=== PATIENT | female | born 1935 | race Caucasian/White ===

== ENCOUNTER 2018-02-16 12:28 | Emergency (ER) | payer MEDICARE ==
[2018-02-16] MEDS ORDERED: Tetan/Diph/Pertus SYR(Tdap)* 0.5 ML SYR(BOOSTRIX) use SYR IM ONE (12:40)
--- NOTE | 2018-02-16 12:46 | UC ---
Laceration HPI - HPI Summary HPI Summary: 82 yo female presents with laceration to left leg. She tells me that she opened the car door to get into the car and the bottom of the door hit her left robbins. Sustained a laceration. Bandaged it and came to urgent care. Unsure date of last tetanus. She is on blood thinners due to afib - History Of Current Complaint Chief Complaint: UCLaceration Stated Complaint: LEG LAC Time Seen by Provider: 02/16/18 12:45 Hx Obtained From: Patient Laceration Location: Calf Mechanism Of Injury: Blunt Trauma Onset/Duration: Sudden Onset Severity: Mild Pain Intensity: 2 Pain Scale Used: 0-10 Numeric - Allergies/Home Medications Allergies/Adverse Reactions: Allergies Allergy/AdvReac Type Severity Reaction Status Date / Time hydralazine Allergy See Comment Verified 02/16/18 12:52 Tetracyclines Allergy Diarrhea Verified 02/16/18 12:52 narcotics Allergy Vomiting Uncoded 02/16/18 12:52 Home Medications: Home Medications Anastrozole (NF) [Arimidex (NF)] 1 mg PO DAILY 02/16/18 [History Confirmed 02/16] Ascorbic Acid TAB* [Vitamin C TAB*] 1 tab PO DAILY 02/16/18 [History Confirmed 02/16/18] Atorvastatin* [Lipitor 20 MG*] 20 mg PO BEDTIME 02/16/18 [History Confirmed 08/24] Calcium Citrate/Vitamin D3 [Calcium Cit 200-Vit D3 250 Tab] 1 tab PO DAILY 02/16 [History Confirmed 02/16/18] Calcium Polycarbophil [Fiber] 1 tab PO BID 02/16/18 [History Confirmed 02/16/18] Cholecalciferol (Vitamin D3) [D3-2000] 2,000 units PO DAILY 02/16/18 [History Confirmed 02/16/18] Cyanocobalamin (Vitamin B-12) [Vitamin B-12] 1,000 mcg PO DAILY 02/16/18 [ History Confirmed 02/16/18] Denosumab(NF) [Prolia(NF)] 60 ml SUBCUT SEE INSTRUCTIONS 02/16/18 [History Confirmed 02/16/18] Doxycycline (NF) 20 mg PO DAILY 02/16/18 [History Confirmed 02/16/18] Furosemide TAB* [Lasix TAB*] 20 mg PO DAILY 02/16/18 [History Confirmed 02/16/18 ] Lansoprazole CAP (NF) [Prevacid CAP (NF)] 30 mg PO DAILY 02/16/18 [History Confirmed 02/16/18] Latanoprost 0.005%* [Xalatan 0.005%*] 1 drop LEFT EYE BEDTIME 02/16/18 [History Confirmed 02/16/18] Metoprolol Succinate XL TAB* [Toprol XL TAB*] 25 mg PO DAILY 02/16/18 [History Confirmed 02/16/18] Multivit-Min/Iron/Folic/Lutein [Centrum Silver Women Tablet] 1 tab PO DAILY 08/24 [History Confirmed 02/16/18] [place]-3 Fatty Acids/Fish Oil [[place] 3 1,000 mg Softgel] 1,000 mg PO BID [History Confirmed 02/16/18] [place]-3/Dha/Epa/Lut/Zeaxanthin [[facility] Softgel] 1 tab PO DAILY 08/24 [History Confirmed 02/16/18] Verapamil TAB* [[place] TAB*] 120 mg PO DAILY 02/16/18 [History Confirmed 02/16/18 ] Vitamin B Complex CAP* [B Complex CAP*] 1 tab PO DAILY 02/16/18 [History Confirmed 02/16/18] Warfarin TAB(*) [Coumadin TAB(*)] 5 mg PO DAILY 02/16/18 [History Confirmed 08/24] Zinc Acetate [Galzin] 1 tab PO WEEKLY 02/16/18 [History Confirmed 02/16/18] PMH/Surg Hx/FS Hx/Imm Hx Endocrine History: Dyslipidemia Cardiovascular History: Hypertension, Congestive Heart Failure, Atrial Fibrillation - Surgical History Surgical History: Yes - Family History Known Family History: Positive: Cardiac Disease, Hypertension - Social History Occupation: Retired Lives: With Family Alcohol Use: Occasionally Substance Use Type: None Smoking Status (MU): Never Smoked Tobacco Review of Systems Constitutional: Negative Skin: Other - Laceration left leg Respiratory: Negative Cardiovascular: Negative Neurovascular: Negative Musculoskeletal: Negative Neurological: Negative Psychological: Negative All Other Systems Reviewed And Are Negative: Yes Physical Exam - Summary Physical Exam Summary: GENERAL: NAD. WDWN. No pain distress. SKIN: 3.5cm flap like superficial laceration to left lateral robbins. Bleeding stopped with direct pressure NECK: Supple. Nontender. No lymphadenopathy. CHEST: No accessory muscle use. Breathing comfortably and in no distress. CV: Left DP and PT intact. NEURO: Alert. PSYCH: Age appropriate behavior. Triage Information Reviewed: Yes Vital Signs: Vital Signs: Temp Pulse Resp BP Pulse Ox 97.7 F 88 18 145/91 95 02/16/18 12:45 02/16/18 12:45 02/16/18 12:45 02/16/18 12:45 02/16/18 12:45 Laceration Repair - Laceration Repair 1 Description: Irregular Laceration Size After Repair: Length (cm) - 3.5 Modified For Repair: No Type Injection: Local Anesthesia Used: 2.0% Lido Additive Used (in ml): Epi Irrigation With Pressure Irrigation Device: Yes Closure Material: Sutures Closure Method: Single Layer Suture Of: Skin Suture Type: Nylon, Prolene Laceration Course/Dx - Course/Dx Course Of Treatment: A time out was performed, witnessed, and signed. The area was irrigated with 250mL sterile saline. 5mL of 2% lidocaine with epi was administered and good anesthetization was achieved. In the usual sterile fashion , SIX 5-0 prolene and THREE 6-0 nylon interrupted sutures were placed (NINE TOTAL). The wound was bandaged with xeroform, telfa, and kerlix. Pt tolerated procedure well. tdap was updated today - Differential Dx - Laceration/Wound Provider Diagnoses: Laceration left leg Discharge - Sign-Out/Discharge Documenting (check all that apply): Discharge/Admit/Transfer - Discharge Plan Condition: Stable Disposition: HOME Patient Education Materials: Care For Your Stitches (DC) Referrals: No Primary Care Phys,NOPCP [Primary Care Provider] - Additional Instructions: If you develop a fever, shortness of breath, chest pain, new or worsening symptoms - please call your PCP or go to the ED. Your blood pressure was high at todays visit. Please see your primary provider within 4 weeks for recheck and re-evaluation. 1) Please keep the area bandaged, clean, dry, and intact for the next 24- 48hours. 2) If you develop a fever, colored or thick discharge, increased pain or swelling - please call your PCP or go to the ED. 3) Please return in 10 days to have your NINE sutures removed (6 blue and 3 black sutures) - Billing Disposition and Condition Condition: STABLE Disposition: Home
[2018-02-16 12:51] VITALS: BP 145/91
[2018-02-16] MEDS ORDERED: Lidocaine 2% PF * 5 ML VIAL INJ ONE (12:57)
[2018-02-16] MEDS ORDERED: Lidocaine 2% EPI 1:200000 MPF*10-20 ML VIAL INJ ONE (13:08)
[2018-02-16] MEDS ORDERED: Lidocaine 2% W/EPI 1:100,000* 20 ML MDV ONE (13:09)
== END 2018-02-16 13:49 | disposition home or self-care (01) ==
LOC: UCEAST 12:28
DX: S81.812A Laceration without foreign body, left lower leg, initial encounter (principal); W22.8XXA Striking against or struck by other objects, initial encounter; Y93.89 Activity, other specified; Y92.810 Car as the place of occurrence of the external cause; Z23 Encounter for immunization; E78.5 Hyperlipidemia, unspecified; I10 Essential (primary) hypertension; I50.9 Heart failure, unspecified; I48.91 Unspecified atrial fibrillation; Z79.01 Long term (current) use of anticoagulants; Z88.1 Allergy status to other antibiotic agents; Z88.5 Allergy status to narcotic agent; Z82.49 Family history of ischemic heart disease and other diseases of the circulatory system
CPT/HCPCS: 12002; 90471; 90715; 99201; G0463